=== PATIENT | male | born 1955 | race Caucasian/White ===

== ENCOUNTER 2018-11-03 10:37 | Emergency (ER) | payer OTHER, MEDICAID ==
[~2018-11-03] VITALS: Ht 188 cm; Wt 77.1 kg
[2018-11-03 10:40] VITALS: BP_SYST 126
--- NOTE | 2018-11-03 11:12 | NUR ---
Pt placed in bed 1
--- NOTE | 2018-11-03 11:14 | NUR ---
Pt brought to ER by self , pt has urinary catheter [address], pt states catheter not draining properly , suprapubic pain 3/10 , skin pink and warm, cap refill <3, VS WNL,afebrile.
--- NOTE | 2018-11-03 11:15 | NUR ---
Dr Hensley at bedside examining patient
--- NOTE | 2018-11-03 12:07 | NUR ---
16# FR Clemens catheter with use of sterile technique. Immediate return of 300 cc urine noted. Bedside drainage bag placed below level of bladder. Urine sample collected and sent to lab. Pt tolerated procedure . Patient arrived with clemens in place, changed due to standard of practice prior to admission. Patient unable to toilet self.
[2018-11-03 12:12] LABS: BASOPHILS # (AUTO) 0.1 K/uL (0.0-0.2); BASOPHILS % (AUTO) 0.5 % (0.0-2.0); EOSINOPHILS # (AUTO) 0.1 K/uL (0.0-0.4); EOSINOPHILS % (AUTO) 0.5 % (0.0-4.0); HEMATOCRIT 47.9 % (36-54); LYMPHOCYTES # (AUTO) 0.8 K/uL (1.0-5.5); MEAN CORPUSCULAR HEMOGLOBIN 29 pg (27-31); MEAN CORPUSCULAR HGB CONC 33 % (32-36); MEAN CORPUSCULAR VOLUME 85 fL (79.0-98.0); MONOCYTES # (AUTO) 0.4 K/uL (0.0-1.0); MONOCYTES % (AUTO) 4.1 % (1.7-9.3); NEUTROPHILS # (AUTO) 9.4 K/uL (1.8-7.7); NEUTROPHILS % (AUTO) 87.9 % (40.0-70.0); PLATELET COUNT (AUTO) 204 K/uL (130-430); RED BLOOD CELL COUNT(AUTO) 5.62 MIL/uL (4.2-6.2); RED CELL DISTRIBUTION WIDTH 14.2 % (9.0-15.0); WHITE BLOOD COUNT (AUTO) 10.8 K/uL (4.8-10.8)
[2018-11-03 12:14] LABS: CALCIUM 9.4 mg/dL (8.4-11.0); CREATININE 0.81 mg/dL (0.55-1.30); POTASSIUM 3.5 mmol/L (3.5-5.1)
[2018-11-03 12:20] LABS: ALBUMIN 3.4 g/dL (3.4-4.8); TOTAL BILIRUBIN 0.5 mg/dL (0.0-1.0)
[2018-11-03 12:25] LABS: BILIRUBIN,URINE NEGATIVE (NEGATIVE); BLOOD, URINE 3+ (NEGATIVE); CLARITY/URINE HAZY (CLEAR); COLOR,URINE YELLOW (YELLOW); GLUCOSE,URINE NEGATIVE (NEGATIVE); KETONES,URINE NEGATIVE (NEGATIVE); LEUKOCYTE ESTERASE ,URINE 3+ (NEGATIVE); NITRITE, URINE POSITIVE (NEGATIVE); PROTEIN URINE NEGATIVE (NEGATIVE); UROBILINOGEN,URINE 0.2 (0.2-1.0)
[2018-11-03] MEDS ORDERED: cefTRIAXone 1 GM IVPB PREMIX 50 ML IV ONE (13:00)
[2018-11-03 13:11] VITALS: BP_SYST 122
[2018-11-03 13:11] LABS: BACTERIA,URINE MANY /HPF (None Seen); RBC,URINE 20-50 /HPF (0-3)
[2018-11-03 13:12] LABS: MUCUS,URINE None Seen /LPF (None Seen)
--- NOTE | 2018-11-03 14:34 | NUR ---
Patient given written and verbal discharge instructions and verbalizes understanding. ER MD discussed with patient the results and treatment provided. Patient in stable condition. ID arm band removed. IV catheter removed intact and dressing applied, no active bleeding. Rx of KEFLEX given. Patient educated on pain management and to follow up with PMD. Pain Scale . Opportunity for questions provided and answered. Medication side effect fact sheet provided.
--- NOTE | 2018-11-03 14:34 | NUR ---
CHANGED OUT KIRAN BAG TO LEG BAG, NO COMPLICATIONS NOTED.
== END 2018-11-03 14:34 | disposition home or self-care (01) ==
LOC: SED 10:37
DX: N39.0 Urinary tract infection, site not specified (principal); R33.9 Retention of urine, unspecified; Z86.79 Personal history of other diseases of the circulatory system
CPT/HCPCS: 36415; 51702; 80053; 81000; 83605; 85025; 87040; 87086; 87186; 96365; 99284; J0696